=== PATIENT | female | born 1955 | race Caucasian/White ===

== ENCOUNTER 2019-04-24 19:48 | Emergency (ER) | payer SELFPAY ==
[~2019-04-24] VITALS: Ht 162.6 cm; Wt 66.0 kg
[2019-04-24 21:54] LABS: CHLORIDE 115 mEq/L (98-107)
[2019-04-24 21:58] LABS: ETHANOL BLOOD 190 mg/dL
[2019-04-24 22:15] LABS: HEMATOCRIT. 27.2 % (36.0-48.0); HEMOGLOBIN. 9.6 g/dL (12.0-16.0); MEAN CORPUSCULAR HEMOGLOBIN 33.1 pg (28.0-32.0); MEAN PLATELET VOLUME 6.9 fl (7.4-10.4); RED BLOOD CELL COUNT 2.89 mill/uL (4.2-5.4); RED CELL DISTRIBUTION WIDTH 16.8 % (11.6-14.6)
[2019-04-24 22:19] LABS: PLATELET 50 x1000/uL (130-400)
[2019-04-24 22:44] LABS: PLATELET ESTIMATE MARKEDLY DECREASED
[2019-04-24] MEDS ORDERED: KCL 20MEQ/100ML PREMIX 100 ML IV NR (22:45)
[2019-04-24] MEDS ORDERED: FOLIC ACID 1 MG, THIAMINE HCL 100 MG, MVI, ADULT NO.1 10 ML in DEXTROSE 5% WATER 1,000 ML IV ONE ×4 (23:00)
[2019-04-25 07:46] VITALS: BP 113/69
== END 2019-04-25 07:50 | disposition home or self-care (01) ==
LOC: ER 19:48
DX: F10.129 Alcohol abuse with intoxication, unspecified (principal); D61.818 Other pancytopenia; E87.6 Hypokalemia; F99 Mental disorder, not otherwise specified; Y90.6 Blood alcohol level of 120-199 mg/100 ml; Z88.2 Allergy status to sulfonamides; Z88.6 Allergy status to analgesic agent
CPT/HCPCS: 36415; 80048; 80307; 80320; 80329; 85025; 96365; 96366; 96368; 99285; J3411; J3480; J3490; J7070; G0480